=== PATIENT | male | born 1995 | race Caucasian/White ===

== ENCOUNTER 2018-11-25 14:03 | Emergency (ER) | payer BC, OTHER ==
[~2018-11-25] VITALS: Ht 193 cm; Wt 88.5 kg
[2018-11-25] MEDS ORDERED: NS IV 1000 ML 1,000 ML IV ONE ×2 (14:21→16:14)
[2018-11-25] MEDS ORDERED: KETOROLAC 30 MG/ML VIAL IVP STA (14:21)
--- NOTE | 2018-11-25 14:29 | ED GI ---
General Chief Complaint: Abdominal/GI Problems Stated Complaint: VOMITING;ABD PAIN Source of Information: Patient, Family Exam Limitations: No Limitations History of Present Illness Date Seen by Provider: Nov 25, 2018 Time Seen by Provider: 14:11 Initial Comments Here with report of nausea, vomiting and diarrhea since 1 AM this morning. Apparently he has 2 kids that have similar symptoms. Patient also has developed right lower quadrant abdominal pain. No blood in vomit or stools. He has been unable tolerate a little bit of Gatorade this afternoon. Timing/Duration: 12 Hours Severity/Quality: Moderate, Severe Location: RUQ, RLQ Radiation: No Radiation Activities at Onset: None Modifying Factors: Worsens With Eating, Worsens With Movement; Improves With Resting Associated Symptoms: No Back Pain, No Chest Pain; Fever/Chills, Nausea/Vomiting ; No Shortness of Air, No Weakness Allergies and Home Medications Allergies Coded Allergies: No Known Drug Allergies (Unverified , 11/25/18) Home Medications Ondansetron 4 Mg Tab.rapdis, 4 MG PO Q6H PRN for NAUSEA/VOMITING Prescribed by: MILO SHETH on 11/25/181817 Patient Home Medication List Home Medication List Reviewed: Yes Review of Systems Review of Systems Constitutional: see HPI, chills, fever, weakness Respiratory: No Symptoms Reported Cardiovascular: No Symptoms Reported Gastrointestinal: Abdominal Pain, Diarrhea, Nausea, Vomiting Genitourinary: No Symptoms Reported Musculoskeletal: no symptoms reported Skin: no symptoms reported All Other Systems Reviewed Negative Unless Noted: Yes Past Ugmhcvl-Jwkpcq-Qkagzu Hx Past Med/Social Hx: Reviewed Nursing Past Med/Soc Hx Patient Social History Alcohol Use: Occasionally Uses Recreational Drug Use: No Smoking Status: Never a Smoker Past Medical History Surgeries: Yes (lump off of head) Orthopedic Respiratory: No Cardiac: No Neurological: No Genitourinary: No Gastrointestinal: No Musculoskeletal: No Family Medical History Reviewed Nursing Family Hx Physical Exam Vital Signs Vital Signs - First Documented 11/25/18 14:26 Temp 101.4 Pulse 115 Resp 20 B/P (MAP) 119/82 (94) Pulse Ox 98 Capillary Refill : Height/Weight/BMI Height: '" Weight: lbs. oz. kg; BMI Method: General Appearance: WD/WN, no apparent distress HEENT: PERRL/EOMI, pharynx normal Neck: full range of motion, supple Respiratory: lungs clear, normal breath sounds Cardiovascular: no murmur, tachycardia Gastrointestinal: soft, guarding (right-sided), tenderness (right sided) Extremities: non-tender, normal inspection Back: normal inspection, no CVA tenderness, no vertebral tenderness Neurologic/Psychiatric: alert, oriented x 3 Skin: normal color, warm/dry Progress/Results/Core Measures Results/Orders Lab Results Laboratory Tests Test 11/25/18 14:22 11/25/18 17:12 Range/Units White Blood Count 12.9 H 4.3-11.0 10^3/uL Red Blood Count 5.92 H 4.35-5.85 10^6/uL Hemoglobin 16.8 13.3-17.7 G/DL Hematocrit 48 40-54 % Mean Corpuscular Volume 81 80-99 FL Mean Corpuscular Hemoglobin 28 25-34 PG Mean Corpuscular Hemoglobin Concent 35 32-36 G/DL Red Cell Distribution Width 13.2 10.0-14.5 % Platelet Count 243 130-400 10^3/uL Mean Platelet Volume 11.0 H 7.4-10.4 FL Neutrophils (%) (Auto) 93 H 42-75 % Lymphocytes (%) (Auto) 3 L 12-44 % Monocytes (%) (Auto) 5 0-12 % Eosinophils (%) (Auto) 0 0-10 % Basophils (%) (Auto) 0 0-10 % Neutrophils # (Auto) 11.9 H 1.8-7.8 X 10^3 Lymphocytes # (Auto) 0.3 L 1.0-4.0 X 10^3 Monocytes # (Auto) 0.6 0.0-1.0 X 10^3 Eosinophils # (Auto) 0.0 0.0-0.3 10^3/uL Basophils # (Auto) 0.0 0.0-0.1 10^3/uL Neutrophils % (Manual) 68 % Lymphocytes % (Manual) 1 % Monocytes % (Manual) 3 % Eosinophils % (Manual) 0 % Basophils % (Manual) 0 % Band Neutrophils 28 % Blood Morphology Comment NORMAL Sodium Level 137 135-145 MMOL/L Potassium Level 3.7 3.6-5.0 MMOL/L Chloride Level 105 98-107 MMOL/L Carbon Dioxide Level 19 L 21-32 MMOL/L Anion Gap 13 5-14 MMOL/L Blood Urea Nitrogen 19 H 7-18 MG/DL Creatinine 1.05 0.60-1.30 MG/DL Estimat Glomerular Filtration Rate > 60 BUN/Creatinine Ratio 18 Glucose Level 121 H 70-105 MG/DL Calcium Level 10.5 H 8.5-10.1 MG/DL Corrected Calcium 8.5-10.1 MG/DL Total Bilirubin 1.8 H 0.1-1.0 MG/DL Aspartate Amino Transf (AST/SGOT) 26 5-34 U/L Alanine Aminotransferase (ALT/SGPT) 30 0-55 U/L Alkaline Phosphatase 73 40-136 U/L C-Reactive Protein High Sensitivity 1.69 H 0.00-0.50 MG/DL Total Protein 7.6 6.4-8.2 GM/DL Albumin 4.7 H 3.2-4.5 GM/DL Urine Color YELLOW Urine Clarity CLEAR Urine pH 6 5-9 Urine Specific [place] 1.020 1.016-1.022 Urine Protein 2+ H NEGATIVE Urine Glucose (UA) NEGATIVE NEGATIVE Urine Ketones 3+ H NEGATIVE Urine Nitrite NEGATIVE NEGATIVE Urine Bilirubin 1+ H NEGATIVE Urine Urobilinogen 1 NORMAL MG/DL Urine Leukocyte Esterase 1+ H NEGATIVE Urine RBC (Auto) NEGATIVE NEGATIVE Urine RBC NONE /HPF Urine WBC 0-2 /HPF Urine Crystals NONE /LPF Urine Bacteria NEGATIVE /HPF Urine Casts NONE /LPF Urine Mucus LARGE H /LPF Urine Culture Indicated NO My Orders Orders - MILO SHETH MD Saline Lock/Iv-Start (11/25/18 14:21) Ns Iv 1000 Ml (Sodium Chloride 0.9%) (11/25/18 14:21) Ketorolac Injection (Toradol Injection) (11/25/18 14:21) Cbc With Automated Diff (11/25/18 14:21) Comprehensive Metabolic Panel (11/25/18 14:21) Hs C Reactive Protein (11/25/18 14:21) Ua Culture If Indicated (11/25/18 14:21) Ct Abd/Pelv W (Appendicitis) (11/25/18 14:21) Ondansetron Injection (Zofran Injectio (11/25/18 14:30) Manual Differential (11/25/18 14:22) Ns Iv 1000 Ml (Sodium Chloride 0.9%) (11/25/18 16:14) Medications Given in ED Vital Signs/I&O 11/25/18 11/25/18 14:26 18:45 Temp 101.4 99.9 Pulse 115 94 Resp 20 16 B/P (MAP) 119/82 (94) 123/69 (87) Pulse Ox 98 99 Progress Progress Note : Progress Note Seen and evaluated. IV, labs, normal saline 1 L bolus, Toradol 30 mg IV, Zofran [address] abdomen pelvis with contrast ordered. Monitor patient. Repeat normal saline 1 L bolus ordered. Patient doing better with fluids. CT does not show any significant abnormality. Discharged home with return precautions. Patient verbalize understanding instructions and agreement with plan. Departure Impression Primary Impression: Diarrhea Qualified Codes: R19.7 - Diarrhea, unspecified Additional Impression: Nausea & vomiting Qualified Codes: R11.2 - Nausea with vomiting, unspecified Disposition: HOME, SELF-CARE Condition: Improved Departure-Patient Inst. Decision time for Depature: 18:45 Patient Instructions: Acute Abdomen (Belly Pain), Adult (DC), Diarrhea in Adolescents and Adults, Nausea and Vomiting, Adult (DC) Add. Discharge Instructions: All discharge instructions reviewed with patient and/or family. Voiced understanding. Clear liquid diet for the next 12-24 hours and then advance as tolerated. You may use a light diet after that. Drink plenty of fluids by taking small sips frequently. You may take Tylenol/acetaminophen 1000 mg every 8 hours as needed for fever or pain. You may take ibuprofen 600 mg every 8 hours as needed for fever or pain. Take other medications as directed. Return for worse pain, fever , vomiting, weakness, breathing problems or other concerns as needed. Scripts Ondansetron (Ondansetron Odt) 4 Mg Tab.rapdis 4 MG PO Q6H PRN for NAUSEA/VOMITING, #8 TAB 0 Refills Prov: MILO SHETH MD 11/25/18 MILO SHETH MD Nov 25, 2018 14:29
[2018-11-25] MEDS ORDERED: ONDANSETRON 4 MG/2 ML (SDV) Z0FRAN IVP ONE (14:30)
[2018-11-25 14:35] LABS: BASOPHILS % (AUTO) 0 % (0-10); EOSINOPHILS % (AUTO) 0 % (0-10); HEMATOCRIT 48 % (40-54); HEMOGLOBIN 16.8 G/DL (13.3-17.7); LYMPHOCYTES # (AUTO) 0.3 X 10^3 (1.0-4.0); LYMPHOCYTES % (AUTO) 3 % (12-44); MEAN CORPUSCULAR HEMOGLOBIN 28 PG (25-34); MEAN CORPUSCULAR HGB CONC 35 G/DL (32-36); MEAN CORPUSCULAR VOLUME 81 FL (80-99); MONOCYTES # (AUTO) 0.6 X 10^3 (0.0-1.0); MONOCYTES % (AUTO) 5 % (0-12); NEUTROPHILS # (AUTO) 11.9 X 10^3 (1.8-7.8); NEUTROPHILS % (AUTO) 93 % (42-75); PLATELET COUNT 243 10^3/uL (130-400); RED CELL DISTRIBUTION WIDTH 13.2 % (10.0-14.5); WHITE BLOOD COUNT 12.9 10^3/uL (4.3-11.0)
[2018-11-25 14:47] LABS: ALANINE AMINOTRANSFERASE 30 U/L (0-55); ALBUMIN 4.7 GM/DL (3.2-4.5); ALKALINE PHOSPHATASE 73 U/L (40-136); BILIRUBIN,TOTAL 1.8 MG/DL (0.1-1.0); BUN/CREATININE RATIO 18; CALCIUM 10.5 MG/DL (8.5-10.1); CARBON DIOXIDE 19 MMOL/L (21-32); CHLORIDE 105 MMOL/L (98-107); CREATININE SERUM 1.05 MG/DL (0.60-1.30); GFR ESTIMATED > 60; GLUCOSE 121 MG/DL (70-105); POTASSIUM 3.7 MMOL/L (3.6-5.0); SODIUM 137 MMOL/L (135-145); TOTAL PROTEIN 7.6 GM/DL (6.4-8.2)
[2018-11-25 14:52] LABS: BAND NEUTROPHILS 28 %; BASOPHILS % (MANUAL) 0 %; EOSINOPHILS % (MANUAL) 0 %; LYMPHOCYTES % (MANUAL) 1 %; MONOCYTES % (MANUAL) 3 %; NEUTROPHILS % (MANUAL) 68 %
[2018-11-25 14:53] LABS: RBC MORPH NORMAL
--- NOTE | 2018-11-25 16:09 | NUR ---
pt reports pain is feeling better but he is unable to pee at this time.
[2018-11-25 17:21] LABS: CLARITY,URINE CLEAR; COLOR,URINE YELLOW; GLUCOSE, URINE (UA) NEGATIVE (NEGATIVE); KETONES,URINE 3+ (NEGATIVE); LEUKOCYTE ESTERASE ,URINE 1+ (NEGATIVE); NITRITE,URINE NEGATIVE (NEGATIVE); PH,URINE 6 (5-9); PROTEIN,URINE 2+ (NEGATIVE); UROBILINOGEN,URINE 1 MG/DL (NORMAL)
[2018-11-25 17:29] LABS: BACTERIA,URINE NEGATIVE /HPF; BILIRUBIN,URINE 1+ (NEGATIVE); WBC,URINE 0-2 /HPF
--- NOTE | 2018-11-25 17:46 | Diagnostic Imaging Report ---
PROCEDURE: CT abdomen and pelvis with contrast, rule out appendicitis. TECHNIQUE: Multiple contiguous axial images were obtained through the abdomen and pelvis after the administration of intravenous contrast. INDICATION: Right lower quadrant pain, nausea, vomiting, and diarrhea. COMPARISON: No previous. FINDINGS: I am unable to identify the appendix with certainty. There are, however, no right lower quadrant or pericecal inflammatory changes to suggest underlying appendicitis. There is no hydronephrosis. The liver, spleen, adrenals, pancreas, and gallbladder are all unremarkable. There is no bowel obstruction or ileus. No ascites, abscess, hematoma, or fluid collection. No pneumatosis or free gas. The abdominal wall is intact. The osseous structures and the lung bases are nonacute. IMPRESSION: No inflammatory process, obstructive features, mass, or acute appearing abdominopelvic abnormalities. Dictated by: Dictated on workstation # [id number]
[2018-11-25] MEDS ORDERED: ONDA4TAB11 PO (18:18)
[2018-11-25 18:45] VITALS: BP 123/69
== END 2018-11-25 18:45 | disposition home or self-care (01) ==
LOC: ER 14:04
DX: R11.2 Nausea with vomiting, unspecified (principal); R10.11 Right upper quadrant pain; R10.31 Right lower quadrant pain
CPT/HCPCS: 36415; 74177; 80053; 81000; 85007; 85027; 86141

== ENCOUNTER 2019-08-29 21:35 | Emergency (ER) | payer BC ==
[~2019-08-29] VITALS: Ht 193 cm; Wt 88.0 kg
[~2019-08-29 21:35] MED LIST: ONDA4TAB11 PO
[2019-08-29] MEDS ORDERED: LACTATED RINGERS 1,000 ML IV ONE ×2 (21:59)
[2019-08-29] MEDS ORDERED: KETOROLAC 30 MG/ML VIAL IVP ONE (22:00)
[2019-08-29] MEDS ORDERED: ONDANSETRON 4 MG/2 ML (SDV) Z0FRAN IV PRN (22:00)
[2019-08-29] MEDS ORDERED: CEFEPIME INJECTION 1,000 MG in WATER (STERILE) FOR INJECTION 10 ML IV ONE (22:00)
--- NOTE | 2019-08-29 22:08 | ED Abdominal Pain ---
General Chief Complaint: Abdominal/GI Problems Stated Complaint: NAUSEA/VOMITTING Source of Information: Patient, Family (mom and dad) Exam Limitations: No Limitations History of Present Illness Date Seen by Provider: Aug 29, 2019 Time Seen by Provider: 21:41 Initial Comments Patient presents ER by private conveyance with mom and dad and chief complaint today he started having some fever Tmax 100.4 Fahrenheit with gripping, 10 out of 10 pain in his lower abdomen and around the umbilicus. He does not have any diarrhea or constipation. He did have nausea and vomiting all day today. He took some Zofran left over from a previous illness 4 mg by mouth at noon with no benefit. He has not had anything for pain or antipyretics. He is not ill tolerate fluids today. He has had a cough nonproductive recently. 2 weeks ago he was diagnosed with outpatient pneumonia and started on Augmentin which she completed after 1 week and was feeling better. No known sick contacts. No sig nificant medical history or pulmonary dysfunction. He does not smoke or drink. He has no history of abdominal surgeries. The pain is almost gone now. Allergies and Home Medications Allergies Coded Allergies: No Known Drug Allergies (Unverified , 11/25/18) Home Medications Ondansetron 4 Mg Tab.rapdis, 4 MG PO Q6H PRN for NAUSEA/VOMITING Prescribed by: MILO SHETH on 11/25/18 1818 Ondansetron 4 Mg Tab.rapdis, 4 MG PO Q6H PRN for NAUSEA/VOMITING-1ST LINE Prescribed by: THERON SALCIDO on 08/29/19 3003 Patient Home Medication List Home Medication List Reviewed: Yes Review of Systems Review of Systems Constitutional: No chills, No diaphoresis EENTM: No Blurred Vision, No Double Vision, No Eye Pain Respiratory: Cough; Denies Shortness of Air, Denies Wheezing Cardiovascular: Denies Chest Pain, Denies Edema; Lightheadedness Gastrointestinal: See HPI, Abdominal Pain; Denies Constipated; Nausea, Poor Appetite, Poor Fluid Intake, Vomiting Genitourinary: Denies Burning, Denies Discharge Musculoskeletal: No back pain, No joint pain Skin: No pruritus, No rash Psychiatric/Neurological: Denies Headache, Denies Numbness, Denies Paresthesia All Other Systems Reviewed Negative Unless Noted: Yes Past Nwqejhe-Jodlmm-Ptkmyw Hx Patient Social History Alcohol Use: Denies Use Recreational Drug Use: No Smoking Status: Never a Smoker 2nd Hand Smoke Exposure: No Recent Foreign Travel: No Contact w/Someone Who Travel: No Recent Hopitalizations: No Physical Abuse: No Sexual Abuse: No Mistreated: No Seasonal Allergies Seasonal Allergies: No Past Medical History Surgeries: Yes (lump off of head) Orthopedic Respiratory: No Cardiac: No Neurological: No Genitourinary: No Gastrointestinal: No Musculoskeletal: No Endocrine: No HEENT: No Cancer: No Psychosocial: No Blood Disorders: No Physical Exam Vital Signs Vital Signs - First Documented 08/29/19 21:40 Temp 36.6 Pulse 122 Resp 16 B/P (MAP) 139/90 (106) Pulse Ox 93 O2 Delivery Room Air Capillary Refill : Height/Weight/BMI Height: 6'4.00" Weight: 195lbs. oz. 88.998622nz; BMI Method:Stated General Appearance: WD/WN, mild distress HEENT: PERRL/EOMI, TMs normal; No pharynx normal (mucosa is dry) Neck: non-tender, full range of motion, supple, normal inspection Respiratory: chest non-tender, lungs clear, normal breath sounds, no re spiratory distress, no accessory muscle use Cardiovascular: normal peripheral pulses, regular rate, rhythm Peripheral Pulses: 2+ Dorsalis Pedis (R), 2+ Left Dors-Pedis (L), 2+ Radial Pulses (R), 2+ Radial Pulses (L) Gastrointestinal: normal bowel sounds, soft, no organomegaly, tenderness (minor suprapubic tenderness) Extremities: normal range of motion, normal inspection, no pedal edema, normal capillary refill Neurologic/Psychiatric: alert, oriented x 3, depressed affect (listless, somnolent), other (GCS 14) Skin: normal color, warm/dry Focused Exam Lactate Level 08/29/19 22:10: Lactic Acid Level 2.63*H 08/30/19 00:10: Lactic Acid Level 1.46 Lactic Acid Level Laboratory Tests Test 08/29/19 22:10 08/30/19 00:10 Lactic Acid Level 2.63 MMOL/L (0.50-2.00) *H 1.46 MMOL/L (0.50-2.00) Progress/Results/Core Measures Results/Orders Lab Results Laboratory Tests Test 08/29/19 22:10 08/29/19 23:25 08/30/19 00:10 Range/Units White Blood Count 16.1 H 4.3-11.0 10^3/uL Red Blood Count 5.91 H 4.35-5.85 10^6/uL Hemoglobin 17.1 13.3-17.7 G/DL Hematocrit 50 40-54 % Mean Corpuscular Volume 84 80-99 FL Mean Corpuscular Hemoglobin 29 25-34 PG Mean Corpuscular Hemoglobin Concent 35 32-36 G/DL Red Cell Distribution Width 12.4 10.0-14.5 % Platelet Count 340 130-400 10^3/uL Mean Platelet Volume 10.3 7.4-10.4 FL Neutrophils (%) (Auto) 88 H 42-75 % Lymphocytes (%) (Auto) 5 L 12-44 % Monocytes (%) (Auto) 6 0-12 % Eosinophils (%) (Auto) 0 0-10 % Basophils (%) (Auto) 0 0-10 % Neutrophils # (Auto) 14.1 H 1.8-7.8 X 10^3 Lymphocytes # (Auto) 0.8 L 1.0-4.0 X 10^3 Monocytes # (Auto) 1.0 0.0-1.0 X 10^3 Eosinophils # (Auto) 0.1 0.0-0.3 10^3/uL Basophils # (Auto) 0.1 0.0-0.1 10^3/uL Neutrophils % (Manual) 90 % Lymphocytes % (Manual) 3 % Monocytes % (Manual) 5 % Band Neutrophils 2 % Microcytosis SLIGHT Prothrombin Time 13.5 12.2-14.7 SEC INR Comment 1.0 0.8-1.4 Activated Partial Thromboplast Time 29 24-35 SEC Sodium Level 139 135-145 MMOL/L Potassium Level 4.2 3.6-5.0 MMOL/L Chloride Level 101 98-107 MMOL/L Carbon Dioxide Level 21 21-32 MMOL/L Anion Gap 17 H 5-14 MMOL/L Blood Urea Nitrogen 22 H 7-18 MG/DL Creatinine 1.25 0.60-1.30 MG/DL Estimat Glomerular Filtration Rate > 60 BUN/Creatinine Ratio 18 Glucose Level 132 H 70-105 MG/DL Lactic Acid Level 2.63 *H 1.46 0.50-2.00 MMOL/L Calcium Level 10.3 H 8.5-10.1 MG/DL Corrected Calcium 8.5-10.1 MG/DL Total Bilirubin 1.3 H 0.1-1.0 MG/DL Aspartate Amino Transf (AST/SGOT) 25 5-34 U/L Alanine Aminotransferase (ALT/SGPT) 27 0-55 U/L Alkaline Phosphatase 86 40-136 U/L Total Protein 8.3 H 6.4-8.2 GM/DL Albumin 4.8 H 3.2-4.5 GM/DL Monoscreen NEGATIVE NEGATIVE Urine Color DARK YELLOW Urine Clarity CLEAR Urine pH 6.0 5-9 Urine Specific [place] 1.025 H 1.016-1.022 Urine Protein TRACE NEGATIVE Urine Glucose (UA) NEGATIVE NEGATIVE Urine Ketones TRACE H NEGATIVE Urine Nitrite NEGATIVE NEGATIVE Urine Bilirubin 1+ H NEGATIVE Urine Urobilinogen 0.2 < = 1.0 MG/DL Urine Leukocyte Esterase NEGATIVE NEGATIVE Urine RBC (Auto) NEGATIVE NEGATIVE Urine RBC RARE /HPF Urine WBC 0-2 /HPF Urine Crystals NONE /LPF Urine Bacteria TRACE /HPF Urine Casts NONE /LPF Urine Mucus LARGE H /LPF Urine Culture Indicated NO Micro Results Microbiology 08/29/19 Influenza Types A,B Antigen (ROHAN) - Final, Complete My Orders Orders - THERON SALCIDO Cbc With Automated Diff (08/29/19 21:59) Comprehensive Metabolic Panel (08/29/19 21:59) Blood Culture (08/29/19 21:59) Sputum Culture (08/29/19 21:59) Urinalysis (08/29/19 21:59) Urine Culture (08/29/19 21:59) Protime With Inr (08/29/19 21:59) Partial Thromboplastin Time (08/29/19 21:59) Chest 1 View Ap/Pa Only (08/29/19 21:59) Ed Iv/Invasive Line Start (08/29/19 21:59) Ed Iv/Invasive Line Start (08/29/19 21:59) Vital Signs Adult Sepsis Patie Q15M (08/29/19 21:59) Ondansetron Injection (Zofran Injectio (08/29/19 22:00) O2 (08/29/19 21:59) Remove Rings In Anticipation O (08/29/19 21:59) Lactic Acid Analyzer (08/29/19 21:59) Influenza A And B Antigens (08/29/19 21:59) Lactated Ringers (Lr 1000 Ml Iv Solution (08/29/19 21:59) Cefepime Injection (Maxipime Injection) (08/29/19 22:00) Ed Iv/Invasive Line Start (08/29/19 21:59) Lactated Ringers (Lr 1000 Ml Iv Solution (08/29/19 21:59) Monotest (08/29/19 21:59) Ketorolac Injection (Toradol Injection) (08/29/19 22:00) Manual Differential (08/29/19 22:10) Ed Iv/Invasive Line Start (08/29/19 23:49) Ns Iv 500 Ml (Sodium Chloride 0.9%) (08/29/19 23:49) Rx-Ondansetron Po (Rx-Zofran Po) (08/30/19 00:08) Lactic Acid Analyzer (08/30/19 00:27) Medications Given in ED Current Medications Medications Dose Ordered Sig/Marielos Route Start Time Stop Time Status Last Admin Dose Admin Cefepime HCl 1000 mg/Sterile Water 10 ml @ 200 mls/hr ONCE ONCE IV 08/29/19 22:00 08/29/19 22:03 DC 08/29/19 22:21 200 MLS/HR Ketorolac Tromethamine 30 mg ONCE ONCE IVP 08/29/19 22:00 08/29/19 22:03 DC 08/29/19 22:21 30 MG Lactated Ringer's 1,000 ml @ 0 mls/hr Q0M ONCE IV 08/29/19 21:59 08/29/19 22:03 DC 08/29/19 22:21 999 MLS/HR Lactated Ringer's 1,000 ml @ 0 mls/hr Q0M ONCE IV 08/29/19 21:59 08/29/19 22:03 DC 08/29/19 22:53 999 MLS/HR Ondansetron HCl 4 mg PRN PRN IV 08/29/19 22:00 08/29/19 22:21 DC 08/29/19 22:20 4 MG Sodium Chloride 500 ml @ 0 mls/hr Q0M ONCE IV 08/29/19 23:49 08/29/19 23:50 DC 08/29/19 23:53 999 MLS/HR Vital Signs/I&O 08/29/19 21:40 Temp 36.6 Pulse 122 Resp 16 B/P (MAP) 139/90 (106) Pulse Ox 93 O2 Delivery Room Air 08/30/19 00:00 Intake Total 2009 ml Balance 2009 ml Progress Progress Note #1: Time: 22:06 Progress Note Tachycardia with a history of fever. Plan to do a septic workup given him 20 mL/kg fluid bolus which is less than 2 L. Plan to give him Toradol for his discomfort. Zofran for the nausea. If the influenza is negative and we don't have a better source for his sepsis such as a UTI then we'll plan to get a CT of his abdomen and pelvis. Chest x-ray. Progress Note #2: Time: 23:47 Progress Note After a 20 mL/kg fluid bolus the patient's tachycardia has resolved his heart rates in the 80s. He has a good blood pressure of 115/61 good oxygen sats and nonlabored breathing. 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 His lactate is elevated and he has a small amount of ketones in the urine as well as an elevated BUNs indicating dehydration likely due to his nausea vomiting diarrhea. This seems to have been reversed. We will recheck a lactate and about 20 minutes and if it has resolved with would offer him to go home. His pain is gone after the Toradol. His nausea is under control. Plan to give another 500 cc normal saline bolus. Progress Note #3: Time: 00:48 Progress Note The patient is feeling much better. Talking able to walk to the bathroom. He is ready to go home. His lactate has resolved. We have given him some Zofran take home pack as well as a prescription, counseling on how to manage dehydration secondary to gastric enteritis colitis and what to expect. We have given him return precautions. Diagnostic Imaging Diagonstic Imaging: Xray Plain Films/CT/US/NM/MRI: chest (1 view) Comments No acute cardiopulmonary process noted. Reviewed: Reviewed by Me Departure Impression Primary Impression: Gastroenteritis and colitis, viral Additional Impression: Moderate dehydration Disposition: 01 HOME, SELF-CARE Condition: Improved Departure-Patient Inst. Decision time for Depature: 00:48 Referrals: SELF,SARAH HEBERT (PCP/Family) Primary Care Physician Patient Instructions: Viral Gastroenteritis, Adult (DC), Dehydration, Adult (DC) Add. Discharge Instructions: Push fluids over the next few days. Half-strength sports drinks such as Gatorade or Powerade are recommended. If you have nausea take one tablet of Zofran every 6 hours as needed under the tongue. Tylenol 1000 mg every 8 hours as needed for pain, fever or body aches. Ibuprofen 800 mg every 8 hours as needed for pain, body aches or fever. If your diarrhea persists then take 2 tablets of Imodium/loperamide followed by one tablet every 4 hours afterwards if you're still having watery stool. Stick to a bland diet until your diarrhea improves. Bananas, rice, applesauce and toast. If your symptoms persist for more than 10 days then you need to follow-up with primary care. All discharge instructions reviewed with patient and/or family. Voiced understa nding. Scripts Ondansetron (Ondansetron Odt) 4 Mg Tab.rapdis 4 MG PO Q6H PRN for NAUSEA/VOMITING-1ST LINE, #20 TAB 0 Refills Prov: THERON SALCIDO 08/29/19 Work/School Note: Work Release Form Date Seen in the Emergency Department: Aug 29, 2019 Return to Work: Sep 01, 2019 Restrictions: No Restrictions THERON SALCIDO Aug 29, 2019 22:08 POS
[2019-08-29 22:22] LABS: BASOPHILS # (AUTO) 0.1 10^3/uL (0.0-0.1); BASOPHILS % (AUTO) 0 % (0-10); EOSINOPHILS # (AUTO) 0.1 10^3/uL (0.0-0.3); EOSINOPHILS % (AUTO) 0 % (0-10); HEMATOCRIT 50 % (40-54); HEMOGLOBIN 17.1 G/DL (13.3-17.7); LYMPHOCYTES # (AUTO) 0.8 X 10^3 (1.0-4.0); LYMPHOCYTES % (AUTO) 5 % (12-44); MEAN CORPUSCULAR HEMOGLOBIN 29 PG (25-34); MEAN CORPUSCULAR HGB CONC 35 G/DL (32-36); MEAN CORPUSCULAR VOLUME 84 FL (80-99); MEAN PLATELET VOLUME 10.3 FL (7.4-10.4); MONOCYTES % (AUTO) 6 % (0-12); NEUTROPHILS # (AUTO) 14.1 X 10^3 (1.8-7.8); NEUTROPHILS % (AUTO) 88 % (42-75); PLATELET COUNT 340 10^3/uL (130-400); RED CELL DISTRIBUTION WIDTH 12.4 % (10.0-14.5); WHITE BLOOD COUNT 16.1 10^3/uL (4.3-11.0)
[2019-08-29 22:40] LABS: PROTHROMBIN TIME PATIENT 13.5 SEC (12.2-14.7)
[2019-08-29 22:42] LABS: ALANINE AMINOTRANSFERASE 27 U/L (0-55); ALKALINE PHOSPHATASE 86 U/L (40-136); BILIRUBIN,TOTAL 1.3 MG/DL (0.1-1.0); BUN/CREATININE RATIO 18; CALCIUM 10.3 MG/DL (8.5-10.1); CARBON DIOXIDE 21 MMOL/L (21-32); CHLORIDE 101 MMOL/L (98-107); CREATININE SERUM 1.25 MG/DL (0.60-1.30); GFR ESTIMATED > 60; GLUCOSE 132 MG/DL (70-105); POTASSIUM 4.2 MMOL/L (3.6-5.0); SODIUM 139 MMOL/L (135-145)
[2019-08-29 22:43] LABS: ALBUMIN 4.8 GM/DL (3.2-4.5); TOTAL PROTEIN 8.3 GM/DL (6.4-8.2)
[2019-08-29 23:11] LABS: BAND NEUTROPHILS 2 %; LYMPHOCYTES % (MANUAL) 3 %; MICROCYTOSIS SLIGHT; MONOCYTES % (MANUAL) 5 %; NEUTROPHILS % (MANUAL) 90 %
[2019-08-29 23:35] LABS: CLARITY,URINE CLEAR
[2019-08-29 23:36] LABS: COLOR,URINE DARK YELLOW; GLUCOSE, URINE (UA) NEGATIVE (NEGATIVE); KETONES,URINE TRACE (NEGATIVE); NITRITE,URINE NEGATIVE (NEGATIVE); PROTEIN,URINE TRACE (NEGATIVE)
[2019-08-29 23:37] LABS: BACTERIA,URINE TRACE /HPF; LEUKOCYTE ESTERASE ,URINE NEGATIVE (NEGATIVE); RBC,URINE RARE /HPF; WBC,URINE 0-2 /HPF
[2019-08-29 23:41] LABS: BILIRUBIN,URINE 1+ (NEGATIVE)
[2019-08-29] MEDS ORDERED: NS IV 500 ML 500 ML IV ONE (23:49)
[2019-08-29] MEDS ORDERED: ONDA4TAB11 PO (23:53)
[2019-08-30] MEDS ORDERED: RX-ONDANSETRON 4 MG ODT (ZOFRAN) PPK #4 PO STA (00:08)
[2019-08-30 00:51] VITALS: BP 111/64
--- NOTE | 2019-08-30 06:17 | Diagnostic Imaging Report ---
INDICATION: Fever, nausea, vomiting COMPARISON: None FINDINGS: Single view of the chest demonstrates clear lungs bilaterally. The heart is normal. There is no pneumothorax. The osseous structures are normal. IMPRESSION: Negative chest Dictated by: Dictated on workstation # [id number]
== END 2019-08-30 00:51 | disposition home or self-care (01) ==
LOC: EDUNIT# 21:35 → ER FS 21:38
DX: A08.4 Viral intestinal infection, unspecified (principal); E86.0 Dehydration
CPT/HCPCS: 36415; 71045; 80053; 81000; 83605; 85007; 85027; 85610; 85730; 86308; 87040; 87088; 87804

== ENCOUNTER → 2022-10-17 | Outpatient (CLI) | payer BC, OTHER ==
--- NOTE | 2022-10-17 17:34 | Diagnostic Imaging Report ---
INDICATION: Contusion, pain COMPARISON: None available. TECHNIQUE: 4 radiographs of the left knee dated 10/17/2022. FINDINGS: No acute fracture or dislocation. No destructive osseous process. Joint spaces are well-maintained. No significant osteophyte formation. No knee joint effusion. No suspicious radiopaque foreign body. The patella is well seated within the trochlea. IMPRESSION: Unremarkable examination without acute osseous abnormality. Dictated by: Dictated on workstation # [id number]
== END ==
LOC: RAD FS 13:30
PROVIDERS: ATTEND Nurse Practitioner
DX: S80.02XD Contusion of left knee, subsequent encounter (principal); X58.XXXD Exposure to other specified factors, subsequent encounter
CPT/HCPCS: 73564